=== PATIENT | male | born 2000 | race Asian ===

== ENCOUNTER 2018-05-12 22:11 | Emergency (ER) | payer OTHER ==
[2018-05-12 22:17] VITALS: BP 110/57
--- NOTE | 2018-05-12 22:25 | EDPHY ---
H & P Smoking Status: Never smoked Time Seen by Provider: 05/12/18 22:21 HPI/ROS: CHIEF COMPLAINT: Left thumb pain HISTORY OF PRESENT ILLNESS: 17-year-old male complaining of acute left thumb pain when he was playing soccer, he was kicked in the left thumb. Reproducible pain the 1st metacarpal. Occurred yesterday. No paresthesia. Intact skin. PHYSICAL EXAM (Prior to examination, patient consented to physical exam, hands were washed and my usual and customary physical exam procedures followed) 1) GENERAL: Well-developed, well-nourished, alert and oriented. Appears to be in no acute distress. 2) HEAD: Normocephalic 3) HEENT: Pupils equal, round, reactive to light bilaterally. 4) LUNGS: Breathing comfortably. 5) MUSCULOSKELETAL: Tender to palpation left 1st metacarpal no deformity no angulation. Soft compartments. Normal coloration. 6) SKIN: Intact 7) VASCULAR: pulses and cap refill present are brisk 8) NEUROLOGIC: Radial, ulnar, median nerve function intact with no deficits appreciated on exam DIFFERENTIAL DIAGNOSIS: in no particular order including but not limited to fracture, sprain, compartment syndrome Xray of the interpreted by myself: no definitive acute osseous abnormality Procedure: Splint A Velcro thumb spica splint was applied by ER specimen technician. After application of the splint I returned and re-examined the patient. The splint was adequately immobilizing the joint and distal to the splint the patient's circulation and sensation were intact. Patient shows no signs of compartment syndrome. Was given orthopedic precautions. (Peter Pulido) Constitutional: Initial Vital Signs Temperature (C) 36.7 C 05/12/18 22:13 Heart Rate 61 05/12/18 22:13 Respiratory Rate 16 05/12/18 22:13 Blood Pressure 110/57 L 05/12/18 22:13 O2 Sat (%) 95 05/12/18 22:13 O2 Delivery Mode Room Air Allergies/Adverse Reactions: No Known Allergies Allergy (Unverified 05/12/18 22:17) Home Medications: Medication Instructions Recorded NK [No Known Home Meds] 05/12/18 MDM/Departure - [facility] Imaging Results: Imaging Impressions Hand X-Ray 05/12/18 22:22 Impression: Negative for fracture. ED Course/Re-evaluation: Care of patient under supervision of secondary supervising physician Dr Grande with whom I discussed case. Re-evaluation with serial exams. Discussed his imaging. He has been informed the limitations of x-ray. Although no definitive osseous abnormality ruled out, non osseous injury such as ulnar collateral ligament injury not ruled out. He has been placed in a Velcro thumb spica, recommended and given hand surgery follow-up information. He feels comfortable being discharged. My usual and customary orthopedic precautions instructions provided. (Peter Pulido) PHYSICIAN DOCUMENTATION: The patient was evaluated and managed by the Physician Airline Station Agent. My co- signature indicates that I have reviewed this chart and I agree with the findings and plan of care as documented. I am the secondary supervising physician. (Arlene Grande) - Depart Disposition: Home, Routine, Self-Care Clinical Impression: Injury of left thumb Condition: Good Instructions: Skier's Thumb (ED) Referrals: Wei Starks MD [Medical Doctor] - 2-3 days, call for appt.
== END 2018-05-12 23:02 | disposition home or self-care (01) ==
DX: S69.92XA Unspecified injury of left wrist, hand and finger(s), initial encounter (principal); W50.0XXA Accidental hit or strike by another person, initial encounter; Y93.66 Activity, soccer; Y92.9 Unspecified place or not applicable; Y99.9 Unspecified external cause status
CPT/HCPCS: L3807